=== PATIENT | female | born 1985 | race African-American/Black ===

== ENCOUNTER 2023-09-21 04:07 | Day surgery (SDC) | payer OTHER ==
[2023-09-20 13:47] VITALS: BMI 23.3
[2023-09-21] MEDS ORDERED: oxyCODONE HCL 5 MG TABLET PO PRN ×2 (07:23)
[2023-09-21] MEDS ORDERED: ONDANSETRON 4 MG/2 ML VIAL IVPUSH PRN (07:23)
[2023-09-21] MEDS ORDERED: MIDAZOLAM HCL 2 MG/2 ML SINGLE DOSE VIAL ONE (09:37)
[2023-09-21] MEDS ORDERED: PROPOFOL 20 ML ONE ×2 (09:37→10:44)
[2023-09-21] MEDS ORDERED: DEXAMETHASONE SOD PHOSPHATE 4 MG/1 ML VIAL ONE (09:37)
[2023-09-21] MEDS ORDERED: ONDANSETRON 4 MG/2 ML VIAL ONE (09:37)
[2023-09-21] MEDS ORDERED: LIDOCAINE HCL/PF 2% SDV 5ML VIAL ONE (09:37)
[2023-09-21] MEDS ORDERED: FENTANYL CITRATE/PF 50 MCG/ML VIAL ONE ×4 (09:37→11:25)
[2023-09-21] MEDS ORDERED: KETOROLAC TROMETHAMINE 30 MG/1 ML VIAL ONE (11:04)
[2023-09-21] MEDS: ACETAMINOPHEN 1000 MG/100 ML BAG IVPB ONE (11:30)
[2023-09-21] MEDS: LACTATED RINGERS SOLUTION 1,000 ML IV SCH (12:30)
[2023-09-21 12:58] VITALS: RESP 18; TEMP 97.8
[2023-09-21 14:33] VITALS: BP 117/72; PULSE 67
== END 2023-09-21 13:20 | disposition home or self-care (01) ==
LOC: JASU-SURG 04:07
PROVIDERS: ATTEND Obstetrics & Gynecology
PROC: 0UB98ZZ Excision of Uterus, Via Natural or Artificial Opening Endoscopic (ICD-10-PCS; principal; 2023-09-21 08:00)
DX: N84.0 Polyp of corpus uteri (principal)
CPT/HCPCS: 81025; 86850; 86900; 86901; 88305-TC; 94760; J0131